=== PATIENT | male | born 2000 | race Caucasian/White ===

== ENCOUNTER 2022-08-26 07:06 | Emergency (ER) | payer OTHER ==
[2022-08-26] MEDS ORDERED: MORPHINE 4 MG/ML SYR ONE (07:50)
[2022-08-26] MEDS ORDERED: FAMOTIDINE 20 MG/2 ML VIAL IV ONE (07:50)
[2022-08-26] MEDS ORDERED: NA CHLORIDE 0.9% 1,000 ML ONE (07:50)
[2022-08-26] MEDS ORDERED: ONDANSETRON 4 MG/2 ML VIAL ONE (07:50)
[2022-08-26 07:55] LABS: Absolute Lymphocytes (CBC) 3.3 K/uL (0.7-4.9); Lymphocytes % 33.6 % (15.3-44.8); MCV 81.5 fL (80-100); MPV 7.9 fL (7.6-11.3); RBC Red Blood Cell Count 5.65 M/uL (4.33-5.43)
[2022-08-26 08:07] LABS: Bilirubin Total 0.4 mg/dL (0.2-1.0); Potassium 4.1 mmol/L (3.5-5.1)
--- NOTE | 2022-08-26 08:34 | RAD REPORT ---
EXAM DESCRIPTION: US - Abdomen Exam Limited - 08/26/2022 8:03 am CLINICAL HISTORY: ABD PAIN COMPARISON: No comparisons FINDINGS: No gallstones, sludge or other abnormalities within the gallbladder lumen. There is no wal l thickening or pericholecystic fluid. No common duct stone or biliary tree dilatation identified. IMPRESSION: Normal gallbladder and biliary tree ultrasound.
--- NOTE | 2022-08-26 08:37 | RAD REPORT ---
EXAM DESCRIPTION: CT - Abdomen Pelvis W Contrast - 08/26/2022 8:19 am CLINICAL HISTORY: abd pain COMPARISON: No comparisons TECHNIQUE: Biphasic, helical CT imaging of the abdomen and pelvis was performed following 100 ml non -ionic IV contrast. No oral contrast administered. All CT scans are performed using dose optimization technique as appropriate and may include automated exposure control or mA/KV adjustment according to patient size. FINDINGS: No suspicious findings in the lung bases. The liver, spleen, and pancreas show no suspicious findings. Gallbladder and biliary tree are also wi thout suspicious finding. Symmetric renal function is seen with no hydronephrosis or suspicious renal mass. No pyelonephritis o r acute parenchymal process. No bladder abnormalities. No adrenal abnormalities. No dilated bowel loops or bowel wall thickening. No appendicitis findings. No free air, free fluid or inflammatory stranding. No hernia, mass or bulky lymphadenopathy. Few small nonspecific sub centime ter mesenteric lymph nodes are seen. No suspicious bony findings. IMPRESSION: Contrast enhanced CT abdomen and pelvis showing no acute or emergent finding.
--- NOTE | 2022-08-26 09:10 | EDPHYS ---
Physician Documentation [facility] Name: En Mejia Age: 22 yrs Sex: Male : 2000 Arrival Date: 08/26/2022 Time: 07:08 Bed 13 Private MD: ED Physician Nick Jha HPI: 08/26 07:21 This 22 yrs old Male presents to ER via Unassigned with complaints of Abdominal Pain. rn 07:21 The patient presents with abdominal pain in the upper abdomen, in the periumbilical rn area. Onset: The symptoms/episode began/occurred this morning. The symptoms do not radiate. Associated signs and symptoms: Pertinent positives: nausea, Pertinent negatives: anorexia, blood in stools, fever, shortness of breath, vomiting. The symptoms are described as constant, crampy. Modifying factors: The symptoms are alleviated by nothing, the symptoms are aggravated by breathing deeply, touching the area. Severity of pain: At its worst the pain was moderate in the emergency department the pain is unchanged. The patient has not experienced similar symptoms in the past. The patient has not recently seen a physician. Pt reports upper and mid abd pain that began this AM, assoc with nausea, no vomiting, radiates up to chest. No cough. Hurts with deep breath. Reports most of pain in upper abdomen. . Historical: - Allergies: 07:23 No Known Allergies; tw2 - Home Meds: 07:23 None [Active]; tw2 - PMHx: 07:23 None; tw2 - PSHx: 07:23 None; tw2 - Immunization history:: Client reports having NOT received the Covid vaccine. - Social history:: Smoking status: Patient denies any tobacco usage or history of. - Family history:: not pertinent. - Hospitalizations: : No recent hospitalization is reported. ROS: 07:21 Constitutional: Negative for fever, chills, and weight loss, Eyes: Negative for injury, rn pain, redness, and discharge, Neck: Negative for injury, pain, and swelling, Cardiovascular: Negative for palpitations, and edema, Respiratory: Negative for shortness of breath, cough, wheezing, and pleuritic chest pain, Abdomen/GI: Negative for vomiting, diarrhea, and constipation Back: Negative for injury and pain, : Negative for injury, bleeding, discharge, and swelling, MS/Extremity: Negative for injury and deformity, Skin: Negative for injury, rash, and discoloration, Neuro: Negative for headache, weakness, numbness, tingling, and seizure. 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 Eyes: Mild left conjunctival injection Cardiovascular: Regular rate and rhythm. No pulse deficits. Respiratory: No increased work of breathing, no retractions or nasal flaring. Abdomen/GI: soft, + epigastric and periumbilical tenderness, no rebound, neg contreras Skin: Warm, dry MS/ Extremity: Pulses equal, no cyanosis. Neuro: Awake and alert, GCS 15 Vital Signs: 07:17 BP 132 / 93; Pulse 76; Resp 17; Temp 98.1(TE); Pulse Ox 100% on R/A; Pain 7/10; tw2 07:53 BP 128 / 84; Pulse 72; Resp 16; Pulse Ox 100% ; Pain 8/10; ko1 09:22 BP 127 / 84; Pulse 65; Resp 17; Pulse Ox 99% on R/A; tw2 Orlando Coma Score: 07:53 Eye Response: spontaneous(4). Verbal Response: oriented(5). Motor Response: obeys ko1 commands(6). Total: 15. MDM: 07:10 Patient medically screened. rn 09:06 Differential diagnosis: appendicitis, cholecystitis, Cholelithiasis, diverticulitis, rn gastritis, gastroesophageal reflux disease, non-specific abd pain, pancreatitis, Peptic Ulcer Disease, gastritis. Data reviewed: vital signs, nurses notes, lab test result(s), radiologic studies, CT scan, ultrasound, and as a result, I will discharge patient. Counseling: I had a detailed discussion with the patient and/or guardian regarding: the historical points, exam findings, and any diagnostic results supporting the discharge/admit diagnosis, lab results, radiology results, the need for outpatient follow up, to return to the emergency department if symptoms worsen or persist or if there are any questions or concerns that arise at home. Response to treatment: the patient's symptoms have mildly improved after treatment, and as a result, I will discharge patient. Special discussion: Based on the patient's Hx, exam, and Dx evaluation, there is no indication for emergent surgery or inpatient Tx. It is understood by the patient/guardian that if the Sx's persist or worsen they need to return immediately for re-evaluation. I discussed with the patient/guardian in detail that at this point there is no indication for admission to the hospital. It is understood, however, that if the symptoms persist or worsen the patient needs to return immediately for re-evaluation. Based on the history and exam findings, there is no indication for further emergent testing or inpatient evaluation. I discussed with the patient/guardian the need to see the doorperson or luggage porter for further evaluation of the symptoms. I discussed with the patient/guardian the need to see the primary care provider for further evaluation of the symptoms. ED course: Pt improved, neg CT abdomen/pelvis and ultrasound, no acute findings in blood. Pt reports ate hot cheetos and dr. sharma last night as well as [employer]. Most likely gastritis vs early viral infection. Will dc home with pcp and GI f/u, recommend antacids, and will prescribe zofran prn. . 08/26 07:20 Order name: CBC with Diff; Complete Time: 08:18 rn 08/26 07:20 Order name: CMP; Complete Time: 08:18 rn 08/26 07:20 Order name: Lipase; Complete Time: 08:18 rn 08/26 07:20 Order name: Abdomen Limited US; Complete Time: 08:39 rn 08/26 07:20 Order name: Flu; Complete Time: 08:18 rn 08/26 07:20 Order name: SARS-COV-2 RT PCR (Document "Date of Onset" if Symptomatic); Complete Time: rn 08/26 07:20 Order name: CT Abd/Pelvis - IV Contrast Only; Complete Time: 08:39 rn 08/26 07:20 Order name: IV Saline Lock; Complete Time: 07:49 rn 08/26 07:20 Order name: Labs collected and sent; Complete Time: 07:49 rn Administered Medications: 07:49 Drug: NS 0.9% 1000 ml Route: IV; Rate: 1 bolus; Site: right antecubital; ko1 09:00 Follow up: Response: No adverse reaction; IV Status: Completed infusion; IV Intake: tw2 1000ml 07:49 Drug: Zofran (Ondansetron) 4 mg Route: IVP; Site: right antecubital; ko1 09:40 Follow up: Response: No adverse reaction tw2 07:50 Drug: Pepcid (famotidine) 20 mg Route: IVP; Site: right antecubital; ko1 09:00 Follow up: Response: No adverse reaction tw2 07:50 Drug: morphine 2 mg Route: IVP; Infused Over: 4 mins; Site: right antecubital; ko1 09:23 Follow up: Response: No adverse reaction; Pain is decreased; RASS: Alert and Calm (0) tw2 09:11 Drug: GI Cocktail without - (Maalox Suspension 30 ml, Lidocaine Liquid 2 % 15 ko1 ml) Route: PO; 09:23 Follow up: Response: No adverse reaction; Marked relief of symptoms tw2 Disposition Summary: 08/26/22 09:09 Discharge Ordered Location: Home rn Problem: new rn Symptoms: have improved rn Condition: Stable rn Diagnosis - Upper abdominal pain, unspecified rn - Acute gastritis without bleeding rn Followup: rn - With: Private Physician - When: As needed - Reason: Recheck today's complaints, Re-evaluation by your physician Discharge Instructions: - Abdominal Pain, Adult rn - Gastritis, Adult rn - Discharge Summary Sheet tw2 - Gastroesophageal Reflux Disease, Adult rn Forms: - Medication Reconciliation Form rn - Work release form tw2 - Thank You Letter 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
--- NOTE | 2022-08-26 09:10 | ER ---
Nurse's Notes [facility] Name: En Mejia Age: 22 yrs Sex: Male : 2000 Arrival Date: 08/26/2022 Time: 07:08 Bed 13 Private MD: Diagnosis: Upper abdominal pain, unspecified;Acute gastritis without bleeding Presentation: 08/26 07:17 Chief complaint: Patient states: my stomach started hurting this morning on the way tw2 home from work. middle are and pain goes upward. +N when pain hit. Coronavirus screen: At this time, the client does not indicate any symptoms associated with coronavirus-19. Ebola Screen: Patient denies travel to an Ebola-affected area in the 21 days before illness onset. Initial Sepsis Screen: Does the patient meet any 2 criteria? No. Patient's initial sepsis screen is negative. Does the patient have a suspected source of infection? No. Patient's initial sepsis screen is negative. Risk Assessment: Do you want to hurt yourself or someone else? Patient reports no desire to harm self or others. Note provider Dr. Jha in triage room at this time. Onset of symptoms was August 26, 2022. 07:17 Method Of Arrival: Ambulatory tw2 07:17 Acuity: DAVID 3 tw2 Triage Assessment: 07:23 General: Appears in no apparent distress. Behavior is calm, cooperative, appropriate tw2 for age. Pain: Complains of pain in epigastric area. Neuro: Level of Consciousness is awake, alert, obeys commands, Oriented to person, place, time, situation. GI: Reports upper abdominal pain. Musculoskeletal: Range of motion: intact in all extremities. Historical: - Allergies: 07:23 No Known Allergies; tw2 - Home Meds: 07:23 None [Active]; tw2 - PMHx: 07:23 None; tw2 - PSHx: 07:23 None; tw2 - Immunization history:: Client reports having NOT received the Covid vaccine. - Social history:: Smoking status: Patient denies any tobacco usage or history of. - Family history:: not pertinent. - Hospitalizations: : No recent hospitalization is reported. Screenin:24 Abuse screen: Denies threats or abuse. Nutritional screening: No deficits noted. tw2 Tuberculosis screening: No symptoms or risk factors identified. Fall Risk None identified. Assessment: 07:53 General: Appears in no apparent distress. comfortable, Behavior is calm, cooperative, ko1 appropriate for age. Pain: Complains of pain in epigastric area, right upper quadrant and left upper quadrant Pain Quality of pain is described as aching, Pain began 2 hours ago. Is continuous. Neuro: No deficits noted. Cardiovascular: No deficits noted. Respiratory: No deficits noted. GI: Bowel sounds present X 4 quads. Abd is soft Abdomen is tender to palpation in epigastric area, right upper quadrant and left upper quadrant. GI: Reports upper abdominal pain, nausea. : No deficits noted. EENT: No deficits noted. Derm: No deficits noted. Musculoskeletal: No deficits noted. 09:22 Reassessment: Patient appears in no apparent distress at this time. Patient and/or tw2 family updated on plan of care and expected duration. Pain level reassessed. Patient is alert, oriented x 3, equal unlabored respirations, skin warm/dry/pink. Patient states feeling better. Vital Signs: 07:17 BP 132 / 93; Pulse 76; Resp 17; Temp 98.1(TE); Pulse Ox 100% on R/A; Pain 7/10; tw2 07:53 BP 128 / 84; Pulse 72; Resp 16; Pulse Ox 100% ; Pain 8/10; ko1 09:22 BP 127 / 84; Pulse 65; Resp 17; Pulse Ox 99% on R/A; tw2 Hernandez Coma Score: 07:53 Eye Response: spontaneous(4). Verbal Response: oriented(5). Motor Response: obeys ko1 commands(6). Total: 15. ED Course: 07:08 Patient arrived in ED. rg4 07:10 Nick Jha MD is Attending Physician. rn 07:22 Bed in low position. Call light in reach. Adult w/ patient. tw2 07:23 Triage completed. tw2 07:24 Arm band placed on. tw2 07:35 Lisbeth Cota, RN is Primary Nurse. ko1 07:43 Initial lab(s) drawn, by me, sent to lab. COVID swab sent to lab. Flu and/or RSV swab tm3 sent to lab. Inserted saline lock: 20 gauge in right antecubital area, using aseptic technique. 07:49 Flu Sent. ko1 07:49 SARS-COV-2 RT PCR (Document "Date of Onset" if Symptomatic) Sent. ko1 07:50 CBC with Diff Sent. ko1 07:50 CMP Sent. ko1 07:50 Lipase Sent. ko1 08:05 Abdomen Limited US In Process Unspecified. EDMS 08:21 CT Abd/Pelvis - IV Contrast Only In Process Unspecified. EDMS 09:22 No provider procedures requiring assistance completed. IV discontinued, intact, tw2 bleeding controlled, No redness/swelling at site. Pressure dressing applied. Administered Medications: 07:49 Drug: NS 0.9% 1000 ml Route: IV; Rate: 1 bolus; Site: right antecubital; ko1 09:00 Follow up: Response: No adverse reaction; IV Status: Completed infusion; IV Intake: tw2 1000ml 07:49 Drug: Zofran (Ondansetron) 4 mg Route: IVP; Site: right antecubital; ko1 09:40 Follow up: Response: No adverse reaction tw2 07:50 Drug: Pepcid (famotidine) 20 mg Route: IVP; Site: right antecubital; ko1 09:00 Follow up: Response: No adverse reaction tw2 07:50 Drug: morphine 2 mg Route: IVP; Infused Over: 4 mins; Site: right antecubital; ko1 09:23 Follow up: Response: No adverse reaction; Pain is decreased; RASS: Alert and Calm (0) tw2 09:11 Drug: GI Cocktail without - (Maalox Suspension 30 ml, Lidocaine Liquid 2 % 15 ko1 ml) Route: PO; 09:23 Follow up: Response: No adverse reaction; Marked relief of symptoms tw2 Medication: 07:25 VIS not applicable for this client. tw2 Intake: 09:00 IV: 1000ml; Total: 1000ml. tw2 Outcome: 09:09 Discharge ordered by . rn 09:23 Discharged to home ambulatory, with family. tw2 09:23 Condition: stable 09:23 Discharge instructions given to patient, family, Instructed on discharge instructions, follow up and referral plans. medication usage, Demonstrated understanding of instructions, follow-up care, medications, Prescriptions given X 1. 09:23 Patient left the ED. tw2 Signatures: Dispatcher [employer] EDFL Mir Martinez tm3 Nick Jha MD MD rn Wise, Tara, RN RN tw2 Michelle Cooper rg4 Lisbeth Cota, RN RN ko1
[2022-08-26] MEDS ORDERED: LIDOCAINE VISCOUS 2% SOLN 15 ML UDC ONE (09:17)
[2022-08-26] MEDS ORDERED: MAGNES/ALUMIN/SIMET 30ML UCUP ONE (09:17)
[2022-08-27 18:42] VITALS: BP 128/84; O2SAT 100
[2022-08-27 18:55] VITALS: TEMP 98.1
== END 2022-08-26 09:23 | disposition home or self-care (01) ==
LOC: ER 07:06
DX: K29.00 Acute gastritis without bleeding (principal); Z20.822 Contact with and (suspected) exposure to COVID-19
CPT/HCPCS: 96361; 85025; 36415; 83690; 80053; 87804 ×2; 74177; 76705; 96375; 96374; 99284; U0003; Q9967; J7030; J2405